=== PATIENT | male | born 2000 | race Caucasian/White ===

== ENCOUNTER 2018-07-30 08:00 | Outpatient (CLI) | payer OTHER ==
[2018-07-30 10:14] LABS: BASOPHILS % (AUTO) 0.6 %; EOSINOPHILS % (AUTO) 0.7 %; LYMPHOCYTES % (AUTO) 24.9 %; MEAN CORPUSCULAR HEMOGLOBIN 30.7 pg (27.0-31.0); MEAN CORPUSCULAR HGB CONC 33.9 g/dL (32.0-36.0); MEAN CORPUSCULAR VOLUME 90.6 fL (80.0-94.0); MEAN PLATELET VOLUME 7.5 fL (7.4-11.4); MONOCYTES # (AUTO) 0.3 10^3/uL (0.0-1.0); MONOCYTES % (AUTO) 6.8 %; NEUTROPHILS # (AUTO) 2.8 10^3/uL (1.5-6.6); PLT - PLATELET COUNT 200 10^3/uL (130-450); RED BLOOD COUNT 4.58 10^6/uL (4.70-6.10); RED CELL DISTRIBUTION WIDTH 12.9 % (12.0-15.0); WHITE BLOOD COUNT 4.1 x10^3/uL (4.8-10.8)
[2018-07-30 10:29] LABS: ALBUMIN 4.4 g/dL (3.2-5.5); ALBUMIN/GLOBULIN RATIO 1.5 (1.0-2.2); ALKALINE PHOSPHATASE 97 IU/L (42-121); ALT ALANINE AMINOTRANSFERASE 27 IU/L (10-60); AST ASPARTATE AMINOTRANSFERASE 25 IU/L (10-42); BILIRUBIN,TOTAL 0.6 mg/dL (0.2-1.0); BUN - BLOOD UREA NITROGEN 21 mg/dL (6-20); CALCIUM 9.2 mg/dL (8.5-10.3); CARBON DIOXIDE - CO2 25 mmol/L (21-32); CHLORIDE 103 mmol/L (101-111); CHOL/HDL RATIO 2.3 (<5.0); CHOLESTEROL 143 mg/dL; CREATININE 0.8 mg/dL (0.6-1.2); GFR - MDRD 123 (>89); GLUCOSE 107 mg/dL (70-100); HDL CHOLESTEROL 62 mg/dL; SODIUM 137 mmol/L (135-145); TOTAL PROTEIN 7.4 g/dL (6.7-8.2)
[2018-07-30 10:47] LABS: LDL CHOLESTEROL,DIRECT 73 mg/dL; LDLD/HDL RATIO 1.2 (<3.6)
[2018-07-30 11:20] LABS: LITHIUM 0.41 mmol/L
== END 2018-07-30 23:59 | disposition home or self-care (01) ==
LOC: LAB 08:00
PROVIDERS: ATTEND Licensed Practical Nurse
DX: Z79.899 Other long term (current) drug therapy (principal)
CPT/HCPCS: 36415; 80050; 80061; 80178; 83721

== ENCOUNTER 2018-09-29 11:21 | Outpatient (CLI) | payer OTHER ==
[2018-09-29 11:44] LABS: EOSINOPHILS % (AUTO) 0.2 %; HGB - HEMOGLOBIN 14.3 g/dL (14.0-18.0); LYMPHOCYTES % (AUTO) 19.8 %; MEAN CORPUSCULAR HEMOGLOBIN 30.6 pg (27.0-31.0); MEAN CORPUSCULAR HGB CONC 33.8 g/dL (32.0-36.0); MEAN CORPUSCULAR VOLUME 90.7 fL (80.0-94.0); MEAN PLATELET VOLUME 7.5 fL (7.4-11.4); MONOCYTES # (AUTO) 0.3 10^3/uL (0.0-1.0); MONOCYTES % (AUTO) 5.9 %; NEUTROPHILS # (AUTO) 3.6 10^3/uL (1.5-6.6); NEUTROPHILS % (AUTO) 73.1 %; PLT - PLATELET COUNT 202 10^3/uL (130-450); RED BLOOD COUNT 4.68 10^6/uL (4.70-6.10); RED CELL DISTRIBUTION WIDTH 12.9 % (12.0-15.0); WHITE BLOOD COUNT 4.9 x10^3/uL (4.8-10.8)
[2018-09-29 12:25] LABS: ALBUMIN 4.5 g/dL (3.2-5.5); ALBUMIN/GLOBULIN RATIO 1.5 (1.0-2.2); BILIRUBIN,TOTAL 1.2 mg/dL (0.2-1.0); CALCIUM 9.1 mg/dL (8.5-10.3); CREATININE 0.8 mg/dL (0.6-1.2); TOTAL PROTEIN 7.6 g/dL (6.7-8.2)
[2018-09-29 12:37] LABS: LITHIUM 0.61 mmol/L
== END 2018-09-29 11:22 | disposition home or self-care (01) ==
LOC: LAB 11:21
PROVIDERS: ATTEND Licensed Practical Nurse
DX: Z79.899 Other long term (current) drug therapy (principal)
CPT/HCPCS: 36415; 80053; 80178; 85025

== ENCOUNTER 2018-10-28 09:03 | Outpatient (CLI) | payer OTHER ==
[2018-10-28 09:27] LABS: BASOPHILS % (AUTO) 0.8 %; EOSINOPHILS % (AUTO) 1.1 %; HGB - HEMOGLOBIN 14.6 g/dL (14.0-18.0); LYMPHOCYTES % (AUTO) 24.6 %; MEAN CORPUSCULAR HGB CONC 33.1 g/dL (32.0-36.0); MEAN CORPUSCULAR VOLUME 90.6 fL (80.0-94.0); MEAN PLATELET VOLUME 7.3 fL (7.4-11.4); MONOCYTES # (AUTO) 0.2 10^3/uL (0.0-1.0); MONOCYTES % (AUTO) 5.9 %; NEUTROPHILS # (AUTO) 2.8 10^3/uL (1.5-6.6); NEUTROPHILS % (AUTO) 67.6 %; PLT - PLATELET COUNT 180 10^3/uL (130-450); RED BLOOD COUNT 4.87 10^6/uL (4.70-6.10); RED CELL DISTRIBUTION WIDTH 13.2 % (12.0-15.0); WHITE BLOOD COUNT 4.2 x10^3/uL (4.8-10.8)
[2018-10-28 09:43] LABS: ALBUMIN 4.6 g/dL (3.2-5.5); ALBUMIN/GLOBULIN RATIO 1.5 (1.0-2.2); ALKALINE PHOSPHATASE 96 IU/L (42-121); ALT ALANINE AMINOTRANSFERASE 17 IU/L (10-60); AST ASPARTATE AMINOTRANSFERASE 19 IU/L (10-42); BILIRUBIN,TOTAL 0.8 mg/dL (0.2-1.0); BUN - BLOOD UREA NITROGEN 16 mg/dL (6-20); CALCIUM 9.4 mg/dL (8.5-10.3); CARBON DIOXIDE - CO2 25 mmol/L (21-32); CHLORIDE 102 mmol/L (101-111); CREATININE 0.7 mg/dL (0.6-1.2); GFR - MDRD 144 (>89); GLUCOSE 99 mg/dL (70-100); SODIUM 137 mmol/L (135-145); TOTAL PROTEIN 7.6 g/dL (6.7-8.2); VALPROIC ACID (DEPAKOTE) 62.1 ug/mL
[2018-10-28 11:06] LABS: LITHIUM 0.93 mmol/L
== END 2018-10-28 09:04 | disposition home or self-care (01) ==
LOC: LAB 09:03
PROVIDERS: ATTEND Licensed Practical Nurse
DX: Z79.899 Other long term (current) drug therapy (principal)
CPT/HCPCS: 36415; 80053; 80164; 80178; 85025

== ENCOUNTER 2018-11-04 08:20 | Outpatient (CLI) | payer OTHER ==
[2018-11-04 08:43] LABS: BASOPHILS % (AUTO) 0.6 %; HGB - HEMOGLOBIN 14.2 g/dL (14.0-18.0); LYMPHOCYTES % (AUTO) 23.6 %; MEAN CORPUSCULAR HEMOGLOBIN 29.9 pg (27.0-31.0); MEAN CORPUSCULAR HGB CONC 32.9 g/dL (32.0-36.0); MEAN PLATELET VOLUME 7.6 fL (7.4-11.4); MONOCYTES # (AUTO) 0.4 10^3/uL (0.0-1.0); NEUTROPHILS # (AUTO) 2.9 10^3/uL (1.5-6.6); NEUTROPHILS % (AUTO) 65.8 %; PLT - PLATELET COUNT 186 10^3/uL (130-450); RED BLOOD COUNT 4.75 10^6/uL (4.70-6.10); RED CELL DISTRIBUTION WIDTH 13.3 % (12.0-15.0); WHITE BLOOD COUNT 4.4 x10^3/uL (4.8-10.8)
[2018-11-04 09:54] LABS: LITHIUM 0.53 mmol/L
== END 2018-11-04 08:21 | disposition home or self-care (01) ==
LOC: LAB 08:20
PROVIDERS: ATTEND Licensed Practical Nurse
DX: Z79.899 Other long term (current) drug therapy (principal)
CPT/HCPCS: 36415; 80178; 85025

== ENCOUNTER 2018-12-12 09:38 | Outpatient (CLI) | payer OTHER ==
[2018-12-12 09:55] LABS: BASOPHILS % (AUTO) 0.7 %; EOSINOPHILS # (AUTO) 0.1 10^3/uL (0.0-0.7); EOSINOPHILS % (AUTO) 1.6 %; HGB - HEMOGLOBIN 14.5 g/dL (14.0-18.0); LYMPHOCYTES # (AUTO) 0.9 10^3/uL (1.5-3.5); LYMPHOCYTES % (AUTO) 24.4 %; MEAN CORPUSCULAR HEMOGLOBIN 31.2 pg (27.0-31.0); MEAN CORPUSCULAR HGB CONC 33.5 g/dL (32.0-36.0); MEAN CORPUSCULAR VOLUME 93.1 fL (80.0-94.0); MEAN PLATELET VOLUME 7.7 fL (7.4-11.4); MONOCYTES # (AUTO) 0.3 10^3/uL (0.0-1.0); MONOCYTES % (AUTO) 7.3 %; NEUTROPHILS # (AUTO) 2.4 10^3/uL (1.5-6.6); PLT - PLATELET COUNT 173 10^3/uL (130-450); RED BLOOD COUNT 4.63 10^6/uL (4.70-6.10); RED CELL DISTRIBUTION WIDTH 13.9 % (12.0-15.0); WHITE BLOOD COUNT 3.6 x10^3/uL (4.8-10.8)
[2018-12-12 10:11] LABS: ALBUMIN 4.5 g/dL (3.2-5.5); ALBUMIN/GLOBULIN RATIO 1.5 (1.0-2.2); ALKALINE PHOSPHATASE 86 IU/L (42-121); ALT ALANINE AMINOTRANSFERASE 19 IU/L (10-60); AST ASPARTATE AMINOTRANSFERASE 23 IU/L (10-42); BILIRUBIN,TOTAL 0.8 mg/dL (0.2-1.0); BUN - BLOOD UREA NITROGEN 13 mg/dL (6-20); CALCIUM 9.6 mg/dL (8.5-10.3); CARBON DIOXIDE - CO2 26 mmol/L (21-32); CHLORIDE 104 mmol/L (101-111); CREATININE 0.9 mg/dL (0.6-1.2); GFR - MDRD 108 (>89); GLUCOSE 112 mg/dL (70-100); SODIUM 141 mmol/L (135-145); TOTAL PROTEIN 7.6 g/dL (6.7-8.2); VALPROIC ACID (DEPAKOTE) 50.5 ug/mL
== END 2018-12-12 09:39 | disposition home or self-care (01) ==
LOC: LAB 09:38
PROVIDERS: ATTEND Licensed Practical Nurse
DX: F63.81 Intermittent explosive disorder (principal); Z79.899 Other long term (current) drug therapy
CPT/HCPCS: 36415; 80053; 80164; 85025

== ENCOUNTER 2018-12-23 09:46 | Outpatient (CLI) | payer OTHER ==
[2018-12-23 10:11] LABS: BASOPHILS # (AUTO) 0.1 10^3/uL (0.0-0.1); BASOPHILS % (AUTO) 1.5 %; EOSINOPHILS # (AUTO) 0.1 10^3/uL (0.0-0.7); EOSINOPHILS % (AUTO) 2.5 %; HGB - HEMOGLOBIN 15.1 g/dL (14.0-18.0); LYMPHOCYTES % (AUTO) 24.3 %; MEAN CORPUSCULAR HEMOGLOBIN 31.2 pg (27.0-31.0); MEAN CORPUSCULAR HGB CONC 33.9 g/dL (32.0-36.0); MEAN PLATELET VOLUME 7.6 fL (7.4-11.4); MONOCYTES # (AUTO) 0.4 10^3/uL (0.0-1.0); MONOCYTES % (AUTO) 9.6 %; NEUTROPHILS # (AUTO) 2.6 10^3/uL (1.5-6.6); NEUTROPHILS % (AUTO) 62.1 %; PLT - PLATELET COUNT 172 10^3/uL (130-450); RED BLOOD COUNT 4.86 10^6/uL (4.70-6.10); RED CELL DISTRIBUTION WIDTH 13.5 % (12.0-15.0); WHITE BLOOD COUNT 4.2 x10^3/uL (4.8-10.8)
== END 2018-12-23 09:47 | disposition home or self-care (01) ==
LOC: LAB 09:46
PROVIDERS: ATTEND Licensed Practical Nurse
DX: F63.81 Intermittent explosive disorder (principal); Z79.899 Other long term (current) drug therapy
CPT/HCPCS: 36415; 85025

== ENCOUNTER 2018-12-30 14:01 | Outpatient (CLI) | payer OTHER ==
[2018-12-30 14:18] LABS: BASOPHILS % (AUTO) 0.7 %; EOSINOPHILS # (AUTO) 0.1 10^3/uL (0.0-0.7); HGB - HEMOGLOBIN 14.8 g/dL (14.0-18.0); LYMPHOCYTES # (AUTO) 1.3 10^3/uL (1.5-3.5); LYMPHOCYTES % (AUTO) 27.6 %; MEAN CORPUSCULAR HEMOGLOBIN 30.4 pg (27.0-31.0); MEAN CORPUSCULAR HGB CONC 32.3 g/dL (32.0-36.0); MEAN PLATELET VOLUME 9.6 fL (7.4-11.4); MONOCYTES # (AUTO) 0.3 10^3/uL (0.0-1.0); MONOCYTES % (AUTO) 5.7 %; NEUTROPHILS # (AUTO) 2.9 10^3/uL (1.5-6.6); PLT - PLATELET COUNT 165 10^3/uL (130-450); RED BLOOD COUNT 4.87 10^6/uL (4.70-6.10); RED CELL DISTRIBUTION WIDTH 12.4 % (12.0-15.0); WHITE BLOOD COUNT 4.5 x10^3/uL (4.8-10.8)
== END 2018-12-30 14:02 | disposition home or self-care (01) ==
LOC: LAB 14:01
PROVIDERS: ATTEND Licensed Practical Nurse
DX: Z79.899 Other long term (current) drug therapy (principal); F63.81 Intermittent explosive disorder
CPT/HCPCS: 36415; 85025

== ENCOUNTER 2021-03-12 18:56 | Outpatient (CLI) | payer MEDICARE, MEDICAID | END 2021-03-12 18:57 | disposition critical access hospital (66) | LOC: EMS 18:56 | DX: R45.6 Violent behavior (principal) | CPT/HCPCS: A0425; A0429 ==

== ENCOUNTER 2021-03-12 19:07 | Emergency (ER) | payer MEDICARE, MEDICAID ==
--- NOTE | 2021-03-12 19:29 | ED Physician Documentation ---
PD HPI MHE - Stated complaint Stated Complaint: MHE - Chief complaint Chief Complaint: MHE - History obtained from History obtained from: Patient - History of Present Illness Primary symptom: Aggressive behavior Pain level max: 0 Pain level now: 0 - Additional information Additional information: Patient is a 20-year-old male with a history of autism and reportedly schizoaffective disorder who presents with aggressive behavior at home today. His sister apparently gave him Benadryl and this did not help. Eventually they contacted his microbiology analyst at [facility] who contacted the DCR who recommend they bring him here for evaluation. The patient currently has no complaints and has been calm and cooperative with EMS. Review of Systems Ten Systems: 10 systems reviewed and negative Constitutional: denies: Fever, Chills Nose: denies: Rhinorrhea / runny nose, Congestion Respiratory: denies: Dyspnea, Cough GI: denies: Abdominal Pain, Nausea, Vomiting, Diarrhea : denies: Dysuria Skin: denies: Rash Musculoskeletal: denies: Neck pain, Back pain Neurologic: denies: Headache PD PAST MEDICAL HISTORY - Past Medical History Past Medical History: Yes Psych: Other (autism, schizoaffective) - Past Surgical History Past Surgical History: No - Present Medications Home Medications: Ambulatory Orders Medication Instructions Recorded Confirmed Divalproex Sodium [Depakote ER] 500 mg PO BID 03/12/21 03/12/21 QUEtiapine [SEROquel] 100 mg PO TID 03/12/21 03/12/21 clonazePAM [Clonazepam] 1 mg PO 03/12/21 - Allergies Allergies/Adverse Reactions: Allergies Allergy/AdvReac Type Severity Reaction Status Date / Time No Known Drug Allergies Allergy Verified 11/18/14 14:52 - Social History Does the pt smoke?: No Smoking Status: Never smoker Does the pt drink ETOH?: No Does the pt have substance abuse?: No - Immunizations Immunizations are current?: Yes - POLST Patient has POLST: No PD ED PE NORMAL - Vitals Vital signs reviewed: Yes - General General: Alert and oriented X 3, No acute distress, Well developed/nourished - HEENT HEENT: Atraumatic, PERRL, Moist mucous membranes - Neck Neck: Supple, no meningeal sign, No bony TTP - Cardiac Cardiac: RRR, Strong equal pulses - Respiratory Respiratory: No respiratory distress, Clear bilaterally - Abdomen Abdomen: Soft, Non tender, Non distended - Back Back: No spinal TTP - Derm Derm: Warm and dry - Extremities Extremities: No edema, No calf tenderness / cord - Neuro Neuro: Alert and oriented X 3, production tech 2-12 intact, No motor deficit, No sensory deficit, Normal speech Eye Opening: Spontaneous Motor: Obeys Commands Verbal: Oriented GCS Score: 15 - Psych Psych: Normal mood, Normal affect Results - Vitals Vitals: Vital Signs - 24 hr 03/12/21 19:11 Temperature 36.6 C Heart Rate 68 Respiratory 18 Rate Blood Pressure 128/74 O2 Saturation 98 Oxygen O2 Source Room air - Labs Labs: Laboratory Tests 03/12/21 03/12/21 03/12/21 19:28 19:28 19:28 WBC 5.3 RBC 4.51 L Hgb 14.7 Hct 42.4 MCV 94.0 MCH 32.6 H MCHC 34.7 RDW 12.1 Plt Count 133 MPV 9.2 Neut # (Auto) 3.6 Lymph # (Auto) 1.2 L Pickett # (Auto) 0.4 Eos # (Auto) 0.0 Baso # (Auto) 0.0 Absolute Nucleated RBC 0.00 Nucleated RBC % 0.0 Sodium 140 Potassium 4.1 Chloride 102 Carbon Dioxide 28 Anion Gap 10.0 BUN 14 Creatinine 0.9 Estimated GFR (MDRD) 106 Glucose 98 Calcium 9.6 Total Bilirubin 0.8 AST 27 ALT 18 Alkaline Phosphatase 75 Total Protein 7.8 Albumin 4.5 Globulin 3.3 Albumin/Globulin Ratio 1.4 Lipase 26 TSH 2.87 Urine Color Urine Clarity Urine pH Ur Specific [place] Urine Protein Urine Glucose (UA) Urine Ketones Urine Occult Blood Urine Nitrite Urine Bilirubin Urine Urobilinogen Ur Leukocyte Esterase Ur Microscopic Review Urine Culture Comments Nasal Adenovirus (PCR) Nasal B. parapertussis DNA (PCR) Nasal Coronavir 229E PCR Nasal Coronavir HKU1 PCR Nasal Coronavir NL63 PCR Nasal Coronavir OC43 PCR Nasal Enterovir/Rhinovir PCR Nasal Influenza B PCR Nasal Influenza A PCR Nasal Parainfluen 1 PCR Nasal Parainfluen 2 PCR Nasal Parainfluen 3 PCR Nasal Parainfluen 4 PCR Nasal RSV (PCR) Nasal B.pertussis DNA PCR Nasal C.pneumoniae (PCR) [place] Human Metapneumo PCR Nasal M.pneumoniae (PCR) Nasal SARS-CoV-2 (PCR) Last Dose Date Last Dose Time Salicylates < 6.0 Urine Opiates Screen Ur Oxycodone Screen Urine Methadone Screen Ur Propoxyphene Screen Acetaminophen < 10 L Ur Barbiturates Screen Valproic Acid Ur Tricyclics Screen Ur Phencyclidine Scrn Ur Amphetamine Screen U Methamphetamines Scrn U Benzodiazepines Scrn Urine Cocaine Screen U Cannabinoids Screen Ethyl Alcohol < 5.0 03/12/21 03/12/21 03/12/21 19:28 20:40 21:30 WBC RBC Hgb Hct MCV MCH MCHC RDW Plt Count MPV Neut # (Auto) Lymph # (Auto) Pickett # (Auto) Eos # (Auto) Baso # (Auto) Absolute Nucleated RBC Nucleated RBC % Sodium Potassium Chloride Carbon Dioxide Anion Gap BUN Creatinine Estimated GFR (MDRD) Glucose Calcium Total Bilirubin AST ALT Alkaline Phosphatase Total Protein Albumin Globulin Albumin/Globulin Ratio Lipase TSH Urine Color YELLOW Urine Clarity CLEAR Urine pH 7.0 Ur Specific [place] 1.020 Urine Protein NEGATIVE Urine Glucose (UA) NEGATIVE Urine Ketones NEGATIVE Urine Occult Blood NEGATIVE Urine Nitrite NEGATIVE Urine Bilirubin NEGATIVE Urine Urobilinogen 0.2 (NORMAL) Ur Leukocyte Esterase NEGATIVE Ur Microscopic Review NOT INDICATED Urine Culture Comments NOT INDICATED Nasal Adenovirus (PCR) NOT DETECTED Nasal B. parapertussis DNA (PCR) NOT DETECTED Nasal Coronavir 229E PCR NOT DETECTED Nasal Coronavir HKU1 PCR NOT DETECTED Nasal Coronavir NL63 PCR NOT DETECTED Nasal Coronavir OC43 PCR NOT DETECTED Nasal Enterovir/Rhinovir PCR NOT DETECTED Nasal Influenza B PCR NOT DETECTED Nasal Influenza A PCR NOT DETECTED Nasal Parainfluen 1 PCR NOT DETECTED Nasal Parainfluen 2 PCR NOT DETECTED Nasal Parainfluen 3 PCR NOT DETECTED Nasal Parainfluen 4 PCR NOT DETECTED Nasal RSV (PCR) NOT DETECTED Nasal B.pertussis DNA PCR NOT DETECTED Nasal C.pneumoniae (PCR) NOT DETECTED [place] Human Metapneumo PCR NOT DETECTED Nasal M.pneumoniae (PCR) NOT DETECTED Nasal SARS-CoV-2 (PCR) NOT DETECTED Last Dose Date Not Reportable Last Dose Time Not Reportable Salicylates Urine Opiates Screen NEGATIVE Ur Oxycodone Screen NEGATIVE Urine Methadone Screen NEGATIVE Ur Propoxyphene Screen NEGATIVE Acetaminophen Ur Barbiturates Screen NEGATIVE Valproic Acid 122.5 Ur Tricyclics Screen POSITIVE H Ur Phencyclidine Scrn NEGATIVE Ur Amphetamine Screen NEGATIVE U Methamphetamines Scrn NEGATIVE U Benzodiazepines Scrn NEGATIVE Urine Cocaine Screen NEGATIVE U Cannabinoids Screen NEGATIVE Ethyl Alcohol PD MEDICAL DECISION MAKING - ED course Complexity details: reviewed results, re-evaluated patient, considered differential, d/w patient ED course: Patient is calm and cooperative in the emergency department during my care. Patient signed out to the oncoming emergency department physician for final disposition. [facility] currently looking for bed placement. Departure - Departure Clinical Impression: Autism, Outbursts of anger Condition: Stable
[2021-03-12 19:36] LABS: BASOPHILS % (AUTO) 0.2 %; EOSINOPHILS % (AUTO) 0.4 %; HCT - HEMATOCRIT 42.4 % (42.0-52.0); HGB - HEMOGLOBIN 14.7 g/dL (14.0-18.0); LYMPHOCYTES # (AUTO) 1.2 10^3/uL (1.5-3.5); LYMPHOCYTES % (AUTO) 23.2 %; MEAN CORPUSCULAR HEMOGLOBIN 32.6 pg (27.0-31.0); MEAN CORPUSCULAR HGB CONC 34.7 g/dL (32.0-36.0); MEAN PLATELET VOLUME 9.2 fL (7.4-11.4); MONOCYTES # (AUTO) 0.4 10^3/uL (0.0-1.0); MONOCYTES % (AUTO) 7.6 %; NEUTROPHILS # (AUTO) 3.6 10^3/uL (1.5-6.6); NEUTROPHILS % (AUTO) 68.2 %; PLT - PLATELET COUNT 133 10^3/uL (130-450); RED BLOOD COUNT 4.51 10^6/uL (4.70-6.10); RED CELL DISTRIBUTION WIDTH 12.1 % (12.0-15.0); WHITE BLOOD COUNT 5.3 x10^3/uL (4.8-10.8)
[2021-03-12 19:49] LABS: ACETAMINOPHEN < 10 ug/mL (10-30); ALBUMIN 4.5 g/dL (3.2-5.5); ALBUMIN/GLOBULIN RATIO 1.4 (1.0-2.2); ALKALINE PHOSPHATASE 75 IU/L (42-121); ALT ALANINE AMINOTRANSFERASE 18 IU/L (10-60); AST ASPARTATE AMINOTRANSFERASE 27 IU/L (10-42); BILIRUBIN,TOTAL 0.8 mg/dL (0.2-1.0); BUN - BLOOD UREA NITROGEN 14 mg/dL (6-20); CALCIUM 9.6 mg/dL (8.5-10.3); CARBON DIOXIDE - CO2 28 mmol/L (21-32); CHLORIDE 102 mmol/L (101-111); CREATININE 0.9 mg/dL (0.6-1.2); ETOH - ETHANOL < 5.0 mg/dL; GFR - MDRD 106 (>89); GLUCOSE 98 mg/dL (70-100); LIPASE 26 U/L (22-51); POTASSIUM 4.1 mmol/L (3.5-5.0); SALICYLATE < 6.0 mg/dL; SODIUM 140 mmol/L (135-145); TOTAL PROTEIN 7.8 g/dL (6.7-8.2)
[2021-03-12 20:25] LABS: VALPROIC ACID (DEPAKOTE) 122.5 ug/mL
[2021-03-12 21:33] LABS: MUDS CUTOFF CONCENTRATIONS CUTOFF CONC BELOW:
[2021-03-12 21:35] LABS: BILIRUBIN,URINE NEGATIVE (NEGATIVE); GLUCOSE, URINE (UA) NEGATIVE (NEGATIVE); KETONES,URINE (UA) NEGATIVE (NEGATIVE); LEUKOCYTE ESTERASE, URINE NEGATIVE (NEGATIVE); NITRITE,URINE NEGATIVE (NEGATIVE); OCCULT BLOOD,URINE NEGATIVE (NEGATIVE); PROTEIN,URINE NEGATIVE (NEGATIVE); UROBILINOGEN,URINE 0.2 (NORMAL) E.U./dL (NORMAL)
[2021-03-12 21:47] LABS: AMPHETAMINE SCREEN,URINE NEGATIVE (NEGATIVE); BARBITURATE SCREEN,UR NEGATIVE (NEGATIVE); BENZODIAZEPINES SCREEN, URINE NEGATIVE (NEGATIVE); CLARITY,URINE CLEAR (CLEAR); COCAINE SCREEN URINE NEGATIVE (NEGATIVE); METHADONE SCREEN, URINE NEGATIVE (NEGATIVE); METHAMPHETAMINES SCREEN, URINE NEGATIVE (NEGATIVE); OPIATE SCREEN, URINE NEGATIVE (NEGATIVE); OXYCODONE SCREEN, URINE NEGATIVE (NEGATIVE); PROPOXYPHENE SCREEN, URINE NEGATIVE (NEGATIVE); THC CANNABINOID SCREEN, URINE NEGATIVE (NEGATIVE); TRICYCLIC ANTIDEPRESSANT,URINE POSITIVE (NEGATIVE)
[2021-03-12 21:47] LABS: B. PARAPERTUSSIS- RESP PCR PAN NOT DETECTED; B. PERTUSSIS- RESP PCR PANEL NOT DETECTED; C. PNEUMONIAE- RESP PCR PANEL NOT DETECTED; CORONAVIRUS 229E-RESP PCR NOT DETECTED; CORONAVIRUS HKU1-RESP PCR NOT DETECTED; CORONAVIRUS NL63-RESP PCR NOT DETECTED; CORONAVIRUS OC43-RESP PCR NOT DETECTED; HUMAN METAPNEUMOVIRUS NOT DETECTED; INFLUENZA A- RESP PCR PANEL NOT DETECTED; INFLUENZA B - RESP PCR PANEL NOT DETECTED; M. PNEUMONIAE- RESP PCR PANEL NOT DETECTED; PARAINFLUENZA VIRUS 1 NOT DETECTED; PARAINFLUENZA VIRUS 2 NOT DETECTED; PARAINFLUENZA VIRUS 3 NOT DETECTED; PARAINFLUENZA VIRUS 4 NOT DETECTED; RHINOVIRUS/ENTEROVIRUS NOT DETECTED; RSV- RESP PCR PANEL NOT DETECTED; SARS-CoV-2 -RESP PCR PANEL NOT DETECTED
[2021-03-12] MEDS ORDERED: MIDAZOLAM 10 MG/5 ML UDC PO STA (22:45)
--- NOTE | 2021-03-12 23:28 | ED Physician Documentation ---
ED Addendum - Addendum Addendum: 03/12/21 23:19 d/w DCR [facility]- most places have no beds. [facility] considered him but does not have the capabilities to care for him. [facility] may have a bed tomorrow. Patient however has been calm in the emergency department. He was provided with oral versed which was offered and accepted as a sleep aide, and has been resting in bed coloring throughout his ED stay. He may be a candidate for outpatient follow up with the new voluntary team, a social media marketing manager named Kayleigh, who works on cases that require follow up. Note that the patient's grandfather (a primary caregiver) went into hospital saturday for herniated disc and is currently in rehab. Mother figure (grandmother) is legal guardian and usually provides care but she has been at the hospital so his 20 year old sister has been caring for him. d/w grandmother who understands we are limited in what we can do for him tonight and agrees since he is calm he can go home for now. Oleg has an appointment tomorrow with his counselor at [facility]. Dr. martinez can manage medically via telehealth. Strict return precautions discussed. 03/13/21 03:45 Impression 1. schizoaffective disorder 2. autism
[2021-03-13 00:05] VITALS: BP 129/82
== END 2021-03-13 00:05 | disposition home or self-care (01) ==
LOC: EDUNIT# → ED 19:07
DX: F25.9 Schizoaffective disorder, unspecified (principal); F84.0 Autistic disorder; Z20.822 Contact with and (suspected) exposure to COVID-19
CPT/HCPCS: 36415; 80053; 80164; 80306; 80307; 81003; 83690; 84443; 85025; 87631; 99283; 99284; A9270; G0480; 0202U; 80320; 80329; 81001; 87086

== ENCOUNTER 2021-03-13 07:04 | Outpatient (CLI) | payer MEDICARE, MEDICAID | END 2021-03-13 07:05 | disposition critical access hospital (66) | LOC: EMS 07:04 | DX: R45.6 Violent behavior (principal); R46.89 Other symptoms and signs involving appearance and behavior | CPT/HCPCS: A0425; A0429 ==

== ENCOUNTER 2021-03-13 07:15 | Emergency (ER) | payer MEDICARE, MEDICAID ==
--- NOTE | 2021-03-13 07:27 | ED Physician Documentation ---
PD HPI MHE - Stated complaint Stated Complaint: MHE - History obtained from History obtained from: Patient, EMS - History of Present Illness Primary symptom: Aggressive behavior (reportedly through EMS, the patient was yelling at family members when upset this morning. No physical actions. Here yesterday for angry behaviors and was seen by SW and DCR. Pt calm during the day in ER so discharged home.) Timing - onset: How many days ago (few) Contributing factors: Family. No: Substance abuse - ETOH, Substance abuse - drugs Recently seen: Emergency Dept (yesterday - notes from yesterday reflect some changes in routine at home with caregivers (grandfather in hospital and grandmother visiting with him, so sister doing more caregiving). Pt had had recent hospitalization/penitentiary and is back in family situation now.) Review of Systems Constitutional: denies: Fever Nose: denies: Rhinorrhea / runny nose, Congestion Throat: denies: Sore throat Respiratory: denies: Cough GI: denies: Vomiting, Diarrhea Skin: denies: Laceration (s) Neurologic: denies: Altered mental status, Headache PD PAST MEDICAL HISTORY - Past Medical History Neuro: Head injury Psych: Other (autism, anxiety, TBI) - Past Surgical History Past Surgical History: No - Present Medications Home Medications: Ambulatory Orders Medication Instructions Recorded Confirmed Divalproex Sodium [Depakote ER] 500 mg PO BID 03/12/21 03/13/21 QUEtiapine [SEROquel] 100 mg PO TID 03/12/21 03/13/21 clonazePAM [Clonazepam] 1 mg PO BID 03/12/21 03/13/21 Quetiapine Fumarate [Seroquel] 50 mg PO DAILY PRN 03/13/21 03/13/21 diphenhydrAMINE [Benadryl] 50 mg PO Q6HR PRN 03/13/21 03/13/21 hydrOXYzine HCL [Hydroxyzine HCl] 25 mg PO BID 03/13/21 03/13/21 - Allergies Allergies/Adverse Reactions: Allergies Allergy/AdvReac Type Severity Reaction Status Date / Time No Known Drug Allergies Allergy Verified 03/13/21 07:49 - Social History Does the pt smoke?: No Smoking Status: Never smoker Does the pt drink ETOH?: No Does the pt have substance abuse?: No - Immunizations Immunizations are current?: Yes - POLST Patient has POLST: No PD ED PE NORMAL - Vitals Vital signs reviewed: Yes - General General: Alert and oriented X 3, No acute distress, Well developed/nourished - HEENT HEENT: Pharynx benign - Neck Neck: Supple, no meningeal sign, No adenopathy - Cardiac Cardiac: RRR, No murmur - Respiratory Respiratory: Clear bilaterally - Neuro Neuro: Alert and oriented X 3 (Does need some focusing on questions to get answers. ), No motor deficit, No sensory deficit - Psych Psych: Other (He says he would dream of being an actor in a superhero. He like superman the past. He is at times frustrated that he is not allowed to be more.). No: Normal mood (somewhat anxious at first, but smiles and talks well when I ask him about his Superman socks. ) Results - Vitals Vitals: Vital Signs - 24 hr 03/13/21 03/13/21 03/13/21 07:20 07:40 17:07 Temperature 36.5 C 36.5 C Heart Rate 121 H 120 H 111 H Respiratory 20 20 18 Rate Blood Pressure 139/95 H 139/95 H 119/71 O2 Saturation 97 97 97 Oxygen O2 Source Room air - Labs Labs: Laboratory Tests 03/13/21 03/13/21 03/13/21 08:12 08:12 08:12 WBC 3.3 L RBC 4.65 L Hgb 15.2 Hct 43.7 MCV 94.0 MCH 32.7 H MCHC 34.8 RDW 12.1 Plt Count 113 L MPV 8.9 Neut # (Auto) 2.0 Lymph # (Auto) 0.9 L Dolores # (Auto) 0.4 Eos # (Auto) 0.0 Baso # (Auto) 0.0 Absolute Nucleated RBC 0.00 Nucleated RBC % 0.0 Sodium 140 Potassium 3.7 Chloride 101 Carbon Dioxide 29 Anion Gap 10.0 BUN 12 Creatinine 0.8 Estimated GFR (MDRD) 121 Glucose 90 Calcium 9.7 Total Bilirubin 1.0 AST 28 ALT 21 Alkaline Phosphatase 77 Total Protein 7.8 Albumin 4.5 Globulin 3.3 Albumin/Globulin Ratio 1.4 Lipase 22 TSH 3.01 Urine Color Urine Clarity Urine pH Ur Specific [place] Urine Protein Urine Glucose (UA) Urine Ketones Urine Occult Blood Urine Nitrite Urine Bilirubin Urine Urobilinogen Ur Leukocyte Esterase Ur Microscopic Review Urine Culture Comments Last Dose Date UNKNOWN Last Dose Time UNKNOWN Salicylates < 6.0 Urine Opiates Screen Ur Oxycodone Screen Urine Methadone Screen Ur Propoxyphene Screen Acetaminophen < 10 L Ur Barbiturates Screen Valproic Acid 79.1 Ur Tricyclics Screen Ur Phencyclidine Scrn Ur Amphetamine Screen U Methamphetamines Scrn U Benzodiazepines Scrn Urine Cocaine Screen U Cannabinoids Screen Ethyl Alcohol < 5.0 03/13/21 08:15 WBC RBC Hgb Hct MCV MCH MCHC RDW Plt Count MPV Neut # (Auto) Lymph # (Auto) Dolores # (Auto) Eos # (Auto) Baso # (Auto) Absolute Nucleated RBC Nucleated RBC % Sodium Potassium Chloride Carbon Dioxide Anion Gap BUN Creatinine Estimated GFR (MDRD) Glucose Calcium Total Bilirubin AST ALT Alkaline Phosphatase Total Protein Albumin Globulin Albumin/Globulin Ratio Lipase TSH Urine Color YELLOW Urine Clarity CLEAR Urine pH 6.5 Ur Specific [place] 1.020 Urine Protein NEGATIVE Urine Glucose (UA) NEGATIVE Urine Ketones NEGATIVE Urine Occult Blood NEGATIVE Urine Nitrite NEGATIVE Urine Bilirubin NEGATIVE Urine Urobilinogen 0.2 (NORMAL) Ur Leukocyte Esterase NEGATIVE Ur Microscopic Review NOT INDICATED Urine Culture Comments NOT INDICATED Last Dose Date Last Dose Time Salicylates Urine Opiates Screen NEGATIVE Ur Oxycodone Screen NEGATIVE Urine Methadone Screen NEGATIVE Ur Propoxyphene Screen NEGATIVE Acetaminophen Ur Barbiturates Screen NEGATIVE Valproic Acid Ur Tricyclics Screen POSITIVE H Ur Phencyclidine Scrn NEGATIVE Ur Amphetamine Screen NEGATIVE U Methamphetamines Scrn NEGATIVE U Benzodiazepines Scrn NEGATIVE Urine Cocaine Screen NEGATIVE U Cannabinoids Screen NEGATIVE Ethyl Alcohol PD MEDICAL DECISION MAKING - ED course Complexity details: reviewed old records, d/w patient, other (Entered forTalked with social work Diamante the DCR. Naomi says no beds available at this time. Given his aggressive behaviors, he could be detained and will if there were beds available. However other alternatives are acceptable if the grandmother is comfortable taking him back home.) ED course: We will get a telepsych consult. See if they have suggestions for medication adjustments. The patient is reportedly due to see is usual provider this coming week as well. The goal today would be to temporize with medication additions or changes to allow less anxiety or behavioral outbursts. If so patient's grandmother says he would be allowed back home tonight. Obviously she will take him back longer-term with med adjustments. Departure - Departure Clinical Impression: Outbursts of anger, Autism, History of traumatic brain injury Condition: Stable Record reviewed to determine appropriate education?: Yes
[2021-03-13] MEDS ORDERED: clonazePAM 0.5 MG TABLET PO STA ×2 (07:35→17:40)
[2021-03-13 08:17] LABS: MUDS CUTOFF CONCENTRATIONS CUTOFF CONC BELOW:
[2021-03-13 08:18] LABS: BASOPHILS % (AUTO) 0.3 %; EOSINOPHILS % (AUTO) 0.3 %; HCT - HEMATOCRIT 43.7 % (42.0-52.0); HGB - HEMOGLOBIN 15.2 g/dL (14.0-18.0); LYMPHOCYTES # (AUTO) 0.9 10^3/uL (1.5-3.5); LYMPHOCYTES % (AUTO) 28.2 %; MEAN CORPUSCULAR HEMOGLOBIN 32.7 pg (27.0-31.0); MEAN CORPUSCULAR HGB CONC 34.8 g/dL (32.0-36.0); MEAN PLATELET VOLUME 8.9 fL (7.4-11.4); MONOCYTES # (AUTO) 0.4 10^3/uL (0.0-1.0); MONOCYTES % (AUTO) 10.5 %; NEUTROPHILS % (AUTO) 60.4 %; PLT - PLATELET COUNT 113 10^3/uL (130-450); RED BLOOD COUNT 4.65 10^6/uL (4.70-6.10); RED CELL DISTRIBUTION WIDTH 12.1 % (12.0-15.0); WHITE BLOOD COUNT 3.3 x10^3/uL (4.8-10.8)
[2021-03-13 08:23] LABS: BILIRUBIN,URINE NEGATIVE (NEGATIVE); GLUCOSE, URINE (UA) NEGATIVE (NEGATIVE); KETONES,URINE (UA) NEGATIVE (NEGATIVE); LEUKOCYTE ESTERASE, URINE NEGATIVE (NEGATIVE); NITRITE,URINE NEGATIVE (NEGATIVE); OCCULT BLOOD,URINE NEGATIVE (NEGATIVE); PH,URINE 6.5 PH (5.0-7.5); PROTEIN,URINE NEGATIVE (NEGATIVE); UROBILINOGEN,URINE 0.2 (NORMAL) E.U./dL (NORMAL)
[2021-03-13 08:34] LABS: ACETAMINOPHEN < 10 ug/mL (10-30); ALBUMIN 4.5 g/dL (3.2-5.5); ALBUMIN/GLOBULIN RATIO 1.4 (1.0-2.2); ALKALINE PHOSPHATASE 77 IU/L (42-121); ALT ALANINE AMINOTRANSFERASE 21 IU/L (10-60); AST ASPARTATE AMINOTRANSFERASE 28 IU/L (10-42); BUN - BLOOD UREA NITROGEN 12 mg/dL (6-20); CALCIUM 9.7 mg/dL (8.5-10.3); CARBON DIOXIDE - CO2 29 mmol/L (21-32); CHLORIDE 101 mmol/L (101-111); CREATININE 0.8 mg/dL (0.6-1.2); ETOH - ETHANOL < 5.0 mg/dL; GFR - MDRD 121 (>89); GLUCOSE 90 mg/dL (70-100); LIPASE 22 U/L (22-51); POTASSIUM 3.7 mmol/L (3.5-5.0); SALICYLATE < 6.0 mg/dL; SODIUM 140 mmol/L (135-145); TOTAL PROTEIN 7.8 g/dL (6.7-8.2); VALPROIC ACID (DEPAKOTE) 79.1 ug/mL
[2021-03-13 08:38] LABS: CLARITY,URINE CLEAR (CLEAR)
[2021-03-13 08:39] LABS: AMPHETAMINE SCREEN,URINE NEGATIVE (NEGATIVE); BARBITURATE SCREEN,UR NEGATIVE (NEGATIVE); BENZODIAZEPINES SCREEN, URINE NEGATIVE (NEGATIVE); COCAINE SCREEN URINE NEGATIVE (NEGATIVE); METHADONE SCREEN, URINE NEGATIVE (NEGATIVE); METHAMPHETAMINES SCREEN, URINE NEGATIVE (NEGATIVE); OPIATE SCREEN, URINE NEGATIVE (NEGATIVE); OXYCODONE SCREEN, URINE NEGATIVE (NEGATIVE); PROPOXYPHENE SCREEN, URINE NEGATIVE (NEGATIVE); THC CANNABINOID SCREEN, URINE NEGATIVE (NEGATIVE); TRICYCLIC ANTIDEPRESSANT,URINE POSITIVE (NEGATIVE)
[2021-03-13] MEDS ORDERED: DIVALPROEX DR 125 MG TABLET PO STA (14:56)
[2021-03-13] MEDS ORDERED: QUEtiapine 100 MG TABLET PO STA (14:56)
[2021-03-13] MEDS: hydrOXYzine PAMOATE 25 MG CAPSULE PO SCH ×2 (20:28→23:29)
[2021-03-13] MEDS: clonazePAM 0.5 MG TABLET PO SCH (20:28)
[2021-03-13] MEDS: DIVALPROEX DR 125 MG TABLET PO SCH ×2 (20:28→23:29)
[2021-03-13] MEDS ORDERED: QUEtiapine 100 MG TABLET PO SCH (22:00)
[2021-03-13] MEDS: QUEtiapine 100 MG TABLET PO SCH (23:29)
[2021-03-13] MEDS ORDERED: haloperidoL 1 MG TABLET PO STA (23:31)
[2021-03-14] MEDS: QUEtiapine 100 MG TABLET PO SCH ×4 (07:07→21:16)
[2021-03-14] MEDS ORDERED: QUEtiapine 100 MG TABLET PO SCH (09:00)
[2021-03-14] MEDS: hydrOXYzine PAMOATE 25 MG CAPSULE PO SCH ×2 (09:28→21:16)
[2021-03-14] MEDS: DIVALPROEX DR 125 MG TABLET PO SCH ×2 (09:28→21:15)
[2021-03-14] MEDS ORDERED: OLANZapine ODT 5 MG TABLET TL STA ×2 (13:24→15:58)
[2021-03-14] MEDS ORDERED: LORazepam 1 MG TABLET PO STA (15:58)
[2021-03-14] MEDS: clonazePAM 0.5 MG TABLET PO SCH (21:15)
[2021-03-15] MEDS ORDERED: diphenhydrAMINE 25 MG CAPSULE PO STA (02:54)
--- NOTE | 2021-03-15 03:42 | ED Physician Documentation ---
ED Addendum - Addendum Addendum: Reportedly places were attempted to be found for him in a senior care setting or such earlier today but none had been found. I will review the social work notes. This evening he had had his usual prescribed medications. He is awake and talkative and having some difficulty relaxing for sleep. He is not disruptive but pleasant and talkative. However he will want to get some sleep tonight so we did add Benadryl 50 mg orally to help. That looks like it had been a as needed medicine for him previously. 03/15/21 03:41
[2021-03-15] MEDS ORDERED: diazePAM 5 MG TABLET PO STA (04:38)
[2021-03-15] MEDS: QUEtiapine 100 MG TABLET PO SCH ×3 (08:11→21:58)
[2021-03-15] MEDS: hydrOXYzine PAMOATE 25 MG CAPSULE PO SCH ×2 (08:12→21:58)
[2021-03-15] MEDS ORDERED: OLANZapine ODT 5 MG TABLET TL ONE ×2 (08:16→14:10)
[2021-03-15] MEDS: DIVALPROEX DR 250 MG TABLET PO SCH ×2 (08:24→21:58)
[2021-03-15] MEDS: clonazePAM 0.5 MG TABLET PO SCH (21:58)
[2021-03-16] MEDS ORDERED: OLANZapine ODT 5 MG TABLET TL ONE ×2 (00:02→16:11)
--- NOTE | 2021-03-16 01:48 | ED Physician Documentation ---
ED Addendum - Addendum Addendum: 03/16/21 01:46The patient had been up most the night last night while I was on shift. It does look like he received his usual prescribed medications through the day today by report from daytime physician was he was up and awake through the day. This evening he is still been up and conversant and walking near his door. I does seem reasonable that he needs to get some sleep. He did receive his usual evening medicines and an hour and a half later was still looking alert and conversant and wanting to stand by the door of his room. I think lack of sleep will be detrimental for him so we added a dose of Zyprexa orally. He is subsequently then feeling sleepy enough to go in and lay down and is now sleeping.
[2021-03-16] MEDS: QUEtiapine 100 MG TABLET PO SCH ×5 (08:20→20:50)
[2021-03-16] MEDS: hydrOXYzine PAMOATE 25 MG CAPSULE PO SCH ×2 (08:30→20:49)
[2021-03-16] MEDS: DIVALPROEX DR 250 MG TABLET PO SCH ×2 (08:30→20:48)
[2021-03-16] MEDS ORDERED: LORazepam 1 MG TABLET PO STA (16:11)
--- NOTE | 2021-03-16 16:19 | ED Physician Documentation ---
ED Addendum - Addendum Addendum: 03/16/21 16:19 Doing well at the beginning of my shift this morning. Few verbal outbursts towards the afternoon, nothing aggressive though. Seem to redirectable.
[2021-03-16] MEDS: clonazePAM 0.5 MG TABLET PO SCH (20:50)
[2021-03-17] MEDS: QUEtiapine 100 MG TABLET PO SCH ×4 (06:27→23:25)
[2021-03-17] MEDS: DIVALPROEX DR 250 MG TABLET PO SCH ×2 (08:35→23:25)
[2021-03-17] MEDS: hydrOXYzine PAMOATE 25 MG CAPSULE PO SCH ×2 (08:35→23:25)
[2021-03-17] MEDS ORDERED: LORazepam 1 MG TABLET PO STA (12:54)
[2021-03-17] MEDS ORDERED: OLANZapine ODT 5 MG TABLET TL ONE (12:54)
[2021-03-17] MEDS: clonazePAM 0.5 MG TABLET PO SCH (23:25)
[2021-03-18] MEDS: QUEtiapine 100 MG TABLET PO SCH ×4 (06:55→22:50)
[2021-03-18] MEDS: hydrOXYzine PAMOATE 25 MG CAPSULE PO SCH ×2 (09:05→22:50)
[2021-03-18] MEDS: DIVALPROEX DR 250 MG TABLET PO SCH ×2 (09:05→22:50)
[2021-03-18] MEDS: clonazePAM 0.5 MG TABLET PO SCH (22:50)
[2021-03-19] MEDS: QUEtiapine 100 MG TABLET PO SCH ×4 (06:31→20:52)
[2021-03-19] MEDS: DIVALPROEX DR 250 MG TABLET PO SCH ×2 (09:07→20:52)
[2021-03-19] MEDS: hydrOXYzine PAMOATE 25 MG CAPSULE PO SCH ×2 (09:07→20:52)
[2021-03-19] MEDS: clonazePAM 0.5 MG TABLET PO SCH (20:52)
[2021-03-20] MEDS: QUEtiapine 100 MG TABLET PO SCH ×4 (06:51→21:18)
[2021-03-20] MEDS: DIVALPROEX DR 250 MG TABLET PO SCH ×2 (09:09→21:18)
[2021-03-20] MEDS: hydrOXYzine PAMOATE 25 MG CAPSULE PO SCH ×2 (09:09→21:18)
[2021-03-20] MEDS: clonazePAM 0.5 MG TABLET PO SCH (21:17)
[2021-03-21] MEDS: hydrOXYzine PAMOATE 25 MG CAPSULE PO SCH ×2 (10:15→22:31)
[2021-03-21] MEDS: DIVALPROEX DR 250 MG TABLET PO SCH ×2 (10:15→22:31)
[2021-03-21] MEDS: QUEtiapine 100 MG TABLET PO SCH ×4 (10:15→22:31)
[2021-03-21] MEDS: clonazePAM 0.5 MG TABLET PO SCH (22:31)
[2021-03-22] MEDS: QUEtiapine 100 MG TABLET PO SCH ×4 (10:58→21:13)
[2021-03-22] MEDS: DIVALPROEX DR 250 MG TABLET PO SCH ×2 (10:58→21:13)
[2021-03-22] MEDS: hydrOXYzine PAMOATE 25 MG CAPSULE PO SCH ×2 (10:58→21:13)
[2021-03-22] MEDS: clonazePAM 0.5 MG TABLET PO SCH (21:13)
[2021-03-23] MEDS: QUEtiapine 100 MG TABLET PO SCH ×4 (06:20→22:07)
[2021-03-23] MEDS: hydrOXYzine PAMOATE 25 MG CAPSULE PO SCH ×2 (09:42→22:06)
[2021-03-23] MEDS: DIVALPROEX DR 250 MG TABLET PO SCH ×2 (09:42→22:06)
[2021-03-23] MEDS: clonazePAM 0.5 MG TABLET PO SCH (22:06)
[2021-03-24] MEDS: QUEtiapine 100 MG TABLET PO SCH ×4 (06:19→22:01)
[2021-03-24] MEDS: hydrOXYzine PAMOATE 25 MG CAPSULE PO SCH ×2 (09:23→22:01)
[2021-03-24] MEDS: DIVALPROEX DR 250 MG TABLET PO SCH ×2 (09:23→22:01)
[2021-03-24] MEDS: clonazePAM 0.5 MG TABLET PO SCH (22:01)
[2021-03-25] MEDS: QUEtiapine 100 MG TABLET PO SCH ×4 (06:25→21:10)
[2021-03-25] MEDS: hydrOXYzine PAMOATE 25 MG CAPSULE PO SCH ×2 (09:57→21:09)
[2021-03-25] MEDS: DIVALPROEX DR 250 MG TABLET PO SCH ×2 (09:57→21:09)
--- NOTE | 2021-03-25 17:05 | ED Physician Documentation ---
ED Addendum - Addendum Addendum: 03/25/21 17:04He remained stable in the ER with normal medications on a scheduled basis. Normal diet. He is but not having any problems here. Social work updated me that we are waiting to hear from the disabled and developmental drug abuse counselor or such to get approval for placement in longterm. That still pending. Unknown timeline at this point. No change in treatment at this time.
[2021-03-25] MEDS: clonazePAM 0.5 MG TABLET PO SCH (21:09)
[2021-03-26] MEDS: QUEtiapine 100 MG TABLET PO SCH ×5 (06:23→21:00)
[2021-03-26] MEDS: DIVALPROEX DR 250 MG TABLET PO SCH ×2 (09:00→21:00)
[2021-03-26] MEDS: hydrOXYzine PAMOATE 25 MG CAPSULE PO SCH ×2 (12:44→21:00)
[2021-03-26] MEDS: clonazePAM 0.5 MG TABLET PO SCH (21:00)
[2021-03-27] MEDS: QUEtiapine 100 MG TABLET PO SCH ×4 (06:41→21:07)
[2021-03-27] MEDS: DIVALPROEX DR 250 MG TABLET PO SCH ×2 (09:03→21:07)
[2021-03-27] MEDS: hydrOXYzine PAMOATE 25 MG CAPSULE PO SCH ×2 (09:03→21:07)
[2021-03-27] MEDS: clonazePAM 0.5 MG TABLET PO SCH (21:07)
[2021-03-28] MEDS: QUEtiapine 100 MG TABLET PO SCH ×3 (06:56→16:06)
[2021-03-28] MEDS: hydrOXYzine PAMOATE 25 MG CAPSULE PO SCH ×2 (09:58→20:19)
[2021-03-28] MEDS: DIVALPROEX DR 250 MG TABLET PO SCH ×2 (09:58→20:19)
[2021-03-28] MEDS: clonazePAM 0.5 MG TABLET PO SCH (20:19)
[2021-03-29] MEDS: QUEtiapine 100 MG TABLET PO SCH ×4 (07:32→21:23)
[2021-03-29] MEDS: DIVALPROEX DR 250 MG TABLET PO SCH ×2 (09:03→21:23)
[2021-03-29] MEDS: hydrOXYzine PAMOATE 25 MG CAPSULE PO SCH ×2 (09:03→21:23)
--- NOTE | 2021-03-29 18:25 | ED Physician Documentation ---
ED Addendum - Addendum Addendum: 03/29/21 18:24Much movement on patient placement. Social work had not heard back from the disability department personnel. The patient remains stable here in the ER with normal medications and diet and intake. He is pleasant and cooperative.
[2021-03-29] MEDS: clonazePAM 0.5 MG TABLET PO SCH (21:23)
[2021-03-30] MEDS: QUEtiapine 100 MG TABLET PO SCH ×4 (06:59→21:28)
[2021-03-30] MEDS: DIVALPROEX DR 250 MG TABLET PO SCH ×2 (09:43→21:28)
[2021-03-30] MEDS: hydrOXYzine PAMOATE 25 MG CAPSULE PO SCH ×2 (09:43→21:28)
[2021-03-30] MEDS: clonazePAM 0.5 MG TABLET PO SCH (21:28)
[2021-03-31] MEDS: hydrOXYzine PAMOATE 25 MG CAPSULE PO SCH ×2 (08:02→22:14)
[2021-03-31] MEDS: QUEtiapine 100 MG TABLET PO SCH ×4 (08:02→22:15)
[2021-03-31] MEDS: DIVALPROEX DR 250 MG TABLET PO SCH ×2 (08:02→22:14)
[2021-03-31] MEDS: clonazePAM 0.5 MG TABLET PO SCH (22:14)
[2021-04-01] MEDS: QUEtiapine 100 MG TABLET PO SCH ×4 (08:27→21:42)
[2021-04-01] MEDS: DIVALPROEX DR 250 MG TABLET PO SCH ×2 (08:27→21:42)
[2021-04-01] MEDS: hydrOXYzine PAMOATE 25 MG CAPSULE PO SCH ×2 (08:28→21:42)
[2021-04-01] MEDS: clonazePAM 0.5 MG TABLET PO SCH (21:41)
[2021-04-02] MEDS: DIVALPROEX DR 250 MG TABLET PO SCH ×2 (12:30→21:35)
[2021-04-02] MEDS: QUEtiapine 100 MG TABLET PO SCH ×4 (12:30→21:35)
[2021-04-02] MEDS: hydrOXYzine PAMOATE 25 MG CAPSULE PO SCH ×2 (12:30→21:35)
--- NOTE | 2021-04-02 19:19 | ED Physician Documentation ---
ED Addendum - Addendum Addendum: 04/02/21 19:19 Patient calm and cooperative, no recent outbursts. He is doing well. Ambulatory outside with one of the techs. Still awaiting placement.
[2021-04-02] MEDS: clonazePAM 0.5 MG TABLET PO SCH (21:36)
[2021-04-03] MEDS: QUEtiapine 100 MG TABLET PO SCH ×4 (08:03→21:04)
[2021-04-03] MEDS: hydrOXYzine PAMOATE 25 MG CAPSULE PO SCH ×2 (13:33→21:04)
[2021-04-03] MEDS: DIVALPROEX DR 250 MG TABLET PO SCH ×2 (13:33→21:04)
[2021-04-03] MEDS: clonazePAM 0.5 MG TABLET PO SCH (21:03)
[2021-04-04] MEDS: QUEtiapine 100 MG TABLET PO SCH ×4 (09:22→20:46)
[2021-04-04] MEDS: hydrOXYzine PAMOATE 25 MG CAPSULE PO SCH ×2 (09:22→20:46)
[2021-04-04] MEDS: DIVALPROEX DR 250 MG TABLET PO SCH ×2 (09:22→20:46)
[2021-04-04] MEDS: clonazePAM 0.5 MG TABLET PO SCH (20:46)
[2021-04-05] MEDS: QUEtiapine 100 MG TABLET PO SCH ×4 (07:20→21:00)
[2021-04-05] MEDS: hydrOXYzine PAMOATE 25 MG CAPSULE PO SCH ×2 (08:57→21:01)
[2021-04-05] MEDS: DIVALPROEX DR 250 MG TABLET PO SCH ×2 (08:57→21:00)
[2021-04-05] MEDS: clonazePAM 0.5 MG TABLET PO SCH (21:00)
[2021-04-05] MEDS ORDERED: BACITRACIN ZINC OINT 1 PACKET TOP STA (22:52)
--- NOTE | 2021-04-05 22:52 | ED Physician Documentation ---
ED Addendum - Addendum Addendum: 04/05/21 22:52 CARLOS Sprague alerted me patient noticed his R fifth toe was red. It looks like a paronychia therefore we are soaking in hot soapy water. Patient declined tylenol or advil.
[2021-04-06] MEDS: QUEtiapine 100 MG TABLET PO SCH ×4 (06:57→21:37)
[2021-04-06] MEDS: hydrOXYzine PAMOATE 25 MG CAPSULE PO SCH ×2 (10:18→21:38)
[2021-04-06] MEDS: DIVALPROEX DR 250 MG TABLET PO SCH ×2 (10:18→21:38)
[2021-04-06] MEDS: clonazePAM 0.5 MG TABLET PO SCH (21:39)
[2021-04-07] MEDS: QUEtiapine 100 MG TABLET PO SCH ×4 (06:30→20:45)
--- NOTE | 2021-04-07 08:13 | ED Physician Documentation ---
ED Addendum - Addendum Addendum: The plan continues to be for the patient to be discharged and to go to a long-term today. Refer to social work notes. He has not had any complications or problems while here. There had been some redness of his toenail and that had been soaked in the evenings last couple of nights. You could continue to do that for the next few days. Otherwise no other current problems. He has been stable pleasant cooperative and well interacting with regular medications and diet and of course minimal activity because of being in the ER. He will benefit from more interaction and ability to have activities. 04/07/21 08:12
[2021-04-07] MEDS ORDERED: MUPIROCIN 2% OINT 1 GM TOP STA (08:15)
[2021-04-07] MEDS ORDERED: cephALEXin 250 MG CAPSULE PO STA (08:16)
[2021-04-07] MEDS: DIVALPROEX DR 250 MG TABLET PO SCH ×2 (09:00→20:45)
[2021-04-07] MEDS: hydrOXYzine PAMOATE 25 MG CAPSULE PO SCH ×2 (09:00→20:45)
[2021-04-07] MEDS: clonazePAM 0.5 MG TABLET PO SCH (20:45)
[2021-04-08] MEDS: QUEtiapine 100 MG TABLET PO SCH ×4 (06:52→20:57)
--- NOTE | 2021-04-08 07:56 | ED Physician Documentation ---
ED Addendum - Addendum Addendum: 04/08/21 07:55 I was asked by the nurse to evaluate a rash on his right upper lip. He has a painful rash on the right upper lip and it appears vesicular, more herpetic than bacterial and will start acyclovir or Valtrex after discussing with the pharmacist which one we have available. Otherwise he seems more morose today, from signout I understand he was excited to be going to [facility] house but now that is not happening at least not in the near future.
[2021-04-08] MEDS: valACYclovir 500 MG TABLET PO SCH ×3 (09:13→20:57)
[2021-04-08] MEDS: MUPIROCIN 2% OINT 1 GM TOP SCH ×2 (09:13→20:57)
[2021-04-08] MEDS: hydrOXYzine PAMOATE 25 MG CAPSULE PO SCH ×2 (09:13→20:57)
[2021-04-08] MEDS: DIVALPROEX DR 250 MG TABLET PO SCH ×2 (09:13→20:57)
[2021-04-08] MEDS ORDERED: hydrOXYzine PAMOATE 25 MG CAPSULE PO STA (16:54)
[2021-04-08] MEDS: clonazePAM 0.5 MG TABLET PO SCH (20:57)
[2021-04-09] MEDS: QUEtiapine 100 MG TABLET PO SCH ×4 (06:51→21:02)
[2021-04-09] MEDS: valACYclovir 500 MG TABLET PO SCH ×3 (06:51→22:35)
[2021-04-09] MEDS: DIVALPROEX DR 250 MG TABLET PO SCH ×2 (13:33→21:02)
[2021-04-09] MEDS: hydrOXYzine PAMOATE 25 MG CAPSULE PO SCH ×2 (13:33→21:02)
[2021-04-09] MEDS: MUPIROCIN 2% OINT 1 GM TOP SCH ×2 (13:34→21:30)
[2021-04-09] MEDS: clonazePAM 0.5 MG TABLET PO SCH (21:02)
[2021-04-10] MEDS: valACYclovir 500 MG TABLET PO SCH ×3 (06:22→22:06)
[2021-04-10] MEDS: QUEtiapine 100 MG TABLET PO SCH ×4 (06:23→21:19)
[2021-04-10] MEDS: hydrOXYzine PAMOATE 25 MG CAPSULE PO SCH ×2 (09:03→21:19)
[2021-04-10] MEDS: MUPIROCIN 2% OINT 1 GM TOP SCH ×2 (09:03→21:19)
[2021-04-10] MEDS: DIVALPROEX DR 250 MG TABLET PO SCH ×2 (09:03→21:19)
[2021-04-10] MEDS: clonazePAM 0.5 MG TABLET PO SCH (21:19)
[2021-04-11] MEDS: QUEtiapine 100 MG TABLET PO SCH ×4 (07:48→20:31)
[2021-04-11] MEDS: valACYclovir 500 MG TABLET PO SCH ×3 (07:48→21:35)
[2021-04-11] MEDS: DIVALPROEX DR 250 MG TABLET PO SCH ×2 (08:41→20:31)
[2021-04-11] MEDS: MUPIROCIN 2% OINT 1 GM TOP SCH ×2 (08:41→20:32)
[2021-04-11] MEDS: hydrOXYzine PAMOATE 25 MG CAPSULE PO SCH ×2 (08:41→20:31)
--- NOTE | 2021-04-11 17:44 | ED Physician Documentation ---
ED Addendum - Addendum Addendum: The patient has not had any problems here in the ER today. Review of most recent nursing notes shows no obvious behavioral problems. Social work note states there may be a bed available at [facility] next Saturday. There will be a case discussion with the facility tomorrow reportedly. 04/11/21 17:43
[2021-04-11] MEDS: clonazePAM 0.5 MG TABLET PO SCH (20:31)
[2021-04-12] MEDS: valACYclovir 500 MG TABLET PO SCH ×3 (06:42→20:47)
[2021-04-12] MEDS: QUEtiapine 100 MG TABLET PO SCH ×4 (06:43→20:47)
[2021-04-12] MEDS: DIVALPROEX DR 250 MG TABLET PO SCH ×2 (08:58→20:47)
[2021-04-12] MEDS: MUPIROCIN 2% OINT 1 GM TOP SCH ×2 (08:59→20:48)
[2021-04-12] MEDS: hydrOXYzine PAMOATE 25 MG CAPSULE PO SCH ×2 (08:59→20:47)
--- NOTE | 2021-04-12 15:57 | ED Physician Documentation ---
ED Addendum - Addendum Addendum: 04/12/21 15:56 Seems quite happy. The rash on his lip has cleared up, also reported that his toe is doing better. Preliminarily he may have placements early to mid next week.
[2021-04-12] MEDS: clonazePAM 0.5 MG TABLET PO SCH (20:47)
[2021-04-13] MEDS: DIVALPROEX DR 250 MG TABLET PO SCH ×2 (10:40→21:13)
[2021-04-13] MEDS: hydrOXYzine PAMOATE 25 MG CAPSULE PO SCH ×2 (10:41→21:13)
[2021-04-13] MEDS: MUPIROCIN 2% OINT 1 GM TOP SCH ×2 (10:41→21:13)
[2021-04-13] MEDS: valACYclovir 500 MG TABLET PO SCH ×3 (10:42→21:13)
[2021-04-13] MEDS: QUEtiapine 100 MG TABLET PO SCH ×3 (11:53→21:13)
[2021-04-13] MEDS ORDERED: clonazePAM 0.5 MG TABLET PO STA (17:56)
[2021-04-13] MEDS ORDERED: QUEtiapine 25 MG TABLET PO STA (18:53)
[2021-04-13] MEDS: clonazePAM 0.5 MG TABLET PO SCH (21:13)
--- NOTE | 2021-04-14 00:43 | ED Physician Documentation ---
ED Addendum - Addendum Addendum: At change of shift earlier this evening, the patient was yelling out and a bit agitated. The flow of the department had been more frenetic through the day and less nursing staff so the patient was not getting as much calming interaction as on previous days. He was given an extra dose of Seroquel PO and this did allow better calming. He was then subsequently given his usual evening dose of medication. He calmed and was back to his usual pleasant talkative and socially interactive demeanor for the remaining of the evening. I feel he was just picking up on the freneticism of the department in the afternoon causing a little agitation. 04/14/21 00:36 04/14/21 00:44
[2021-04-14] MEDS: QUEtiapine 100 MG TABLET PO SCH ×5 (08:56→21:10)
[2021-04-14] MEDS: hydrOXYzine PAMOATE 25 MG CAPSULE PO SCH ×2 (08:58→21:09)
[2021-04-14] MEDS: DIVALPROEX DR 250 MG TABLET PO SCH ×2 (08:58→21:10)
[2021-04-14] MEDS: MUPIROCIN 2% OINT 1 GM TOP SCH ×2 (08:59→21:08)
[2021-04-14] MEDS: valACYclovir 500 MG TABLET PO SCH ×3 (08:59→21:11)
[2021-04-14] MEDS: clonazePAM 0.5 MG TABLET PO SCH (21:10)
[2021-04-15] MEDS: QUEtiapine 100 MG TABLET PO SCH ×4 (06:41→20:59)
[2021-04-15] MEDS: valACYclovir 500 MG TABLET PO SCH ×3 (06:42→20:59)
[2021-04-15] MEDS: MUPIROCIN 2% OINT 1 GM TOP SCH ×2 (08:58→21:00)
[2021-04-15] MEDS: hydrOXYzine PAMOATE 25 MG CAPSULE PO SCH ×2 (08:58→20:58)
[2021-04-15] MEDS: DIVALPROEX DR 250 MG TABLET PO SCH ×2 (08:58→20:58)
[2021-04-15] MEDS: clonazePAM 0.5 MG TABLET PO SCH (21:00)
[2021-04-16] MEDS: valACYclovir 500 MG TABLET PO SCH ×3 (06:33→21:06)
[2021-04-16] MEDS: QUEtiapine 100 MG TABLET PO SCH ×4 (06:33→21:05)
[2021-04-16] MEDS: DIVALPROEX DR 250 MG TABLET PO SCH ×2 (09:25→21:06)
[2021-04-16] MEDS: MUPIROCIN 2% OINT 1 GM TOP SCH ×2 (09:25→21:08)
[2021-04-16] MEDS: hydrOXYzine PAMOATE 25 MG CAPSULE PO SCH ×2 (09:25→21:07)
--- NOTE | 2021-04-16 14:45 | ED Physician Documentation ---
ED Addendum - Addendum Addendum: 04/16/21 14:44No reported problems from overnight staff nursing. He had breakfast this morning. Has been on usual medications. He was resting in his room as I said jeanie. He was pleasant and interactive. Planning for transfer to a retirement in 2 days.
[2021-04-16] MEDS: clonazePAM 0.5 MG TABLET PO SCH (21:02)
[2021-04-17] MEDS: QUEtiapine 100 MG TABLET PO SCH ×4 (06:25→20:39)
[2021-04-17] MEDS: valACYclovir 500 MG TABLET PO SCH ×3 (06:25→21:15)
[2021-04-17] MEDS: hydrOXYzine PAMOATE 25 MG CAPSULE PO SCH ×2 (09:10→20:39)
[2021-04-17] MEDS: DIVALPROEX DR 250 MG TABLET PO SCH ×2 (09:10→20:39)
[2021-04-17] MEDS: MUPIROCIN 2% OINT 1 GM TOP SCH ×2 (09:10→20:40)
[2021-04-17] MEDS: clonazePAM 0.5 MG TABLET PO SCH (20:39)
[2021-04-18 00:19] VITALS: BP 118/61
[2021-04-18] MEDS: QUEtiapine 100 MG TABLET PO SCH (06:43)
[2021-04-18] MEDS: valACYclovir 500 MG TABLET PO SCH (06:43)
--- NOTE | 2021-04-18 07:39 | ED Physician Documentation ---
ED Addendum - Addendum Addendum: 04/18/21 07:37The patient is awake and dressed and has had breakfast. Is excited about discharging today to a detention. Social work has apparently set up all the details with information in his discharge packet. Greyson has no complaints this morning and appears well. Disposition patient is discharged in stable condition and will be going to a detention today. Diagnoses: Cognitive impairment
[2021-04-18] MEDS: hydrOXYzine PAMOATE 25 MG CAPSULE PO SCH (08:25)
[2021-04-18] MEDS: DIVALPROEX DR 250 MG TABLET PO SCH (08:25)
[2021-04-18] MEDS: MUPIROCIN 2% OINT 1 GM TOP SCH (08:26)
== END 2021-04-18 08:50 ==
LOC: EDUNIT# → ED 07:15
DX: F84.0 Autistic disorder (principal); F91.8 Other conduct disorders; R41.89 Other symptoms and signs involving cognitive functions and awareness; R45.4 Irritability and anger; Z87.820 Personal history of traumatic brain injury; L53.9 Erythematous condition, unspecified; B00.1 Herpesviral vesicular dermatitis; Z20.822 Contact with and (suspected) exposure to COVID-19
CPT/HCPCS: 36415; 80053; 80164; 80306; 80307; 81003; 83690; 84443; 85025; 99283; 99285; A9270; G0427; G0480; J8499; Q3014; U0004; 80320; 80329; 81001; 87086

== ENCOUNTER 2021-12-20 08:00 | Outpatient (CLI) | payer MEDICARE, MEDICAID ==
--- NOTE | 2021-12-20 16:29 | XRAY Report ---
PROCEDURE: Abdomen 1 View X-Ray INDICATIONS: CONSTIPATION TECHNIQUE: One view of the abdomen acquired. COMPARISON: None. FINDINGS: Surgical changes and devices: None. Bowel: Bowel gas pattern is normal. Large volume of formed stool in the colon. Soft tissues: No suspicious abdominal calcifications. Visualized solid organ contours appear normal in size. Bones: No suspicious bony lesions. IMPRESSION: Large volume of formed stool throughout the: colon which is consistent with the provided history of c onstipation. Reviewed by: Davie Orellana MD on 12/20/2021 4:28 PM PDT Approved by: Davie Orellana MD on 12/20/2021 4:28 PM PDT Station ID: [id number]
== END 2021-12-20 23:59 | disposition home or self-care (01) ==
LOC: DI.N 08:00
PROVIDERS: ATTEND Nurse Practitioner
DX: K59.00 Constipation, unspecified (principal)